=== PATIENT | female | born 1980 | race Caucasian/White ===

== ENCOUNTER 2017-03-15 18:31 | Emergency (ER) | payer OTHER ==
[2017-03-15 18:43] LABS: PH,URINE 5.5 (4.5-8); URINE APPEARANCE Cloudy; URINE BILIRUBIN Negative (NEGATIVE); URINE GLUCOSE (UA) Negative (NEGATIVE); URINE KETONE Negative (NEGATIVE); URINE NITRITE Negative (NEGATIVE); URINE UROBILINOGEN 0.2 (0.2-1.0)
[2017-03-15 18:44] LABS: URINE BLOOD 1+ (NEGATIVE); URINE COLOR YELLOW; URINE LEUK ESTERASE 2+ (NEGATIVE); URINE PROTEIN 1+ (NEGATIVE)
[2017-03-15 18:45] VITALS: BP 148/104; PULSE 96; TEMP 99.3; BMI 34.0
[2017-03-15 18:58] LABS: URINE BACTERIA MODERATE /hpf (NEGATIVE); URINE WBC MANY (3-5)
--- NOTE | 2017-03-15 19:25 | PDOC ---
History of Present Illness - General History Source: Patient Exam Limitations: No Limitations - History of Present Illness Initial Comments: 03/15/17 20:34 The patient is a 36 year old female, with a significant past medical history of Wayne Rich(3 years ago), who presents to the emergency department complaining of burning with urination and flank pain for approximately 2 days. The patient reports she first began to experience suprapubic discomfort early yesterday morning. At the time, patient reports going to urinate and experiencing associated dysuria. Patient reports increased urinary frequency, but denies any hematuria or urgency. Patient reports her abdominal pain has been mildly alleviated after taking motrin, but her bilateral flank pain and dysuria persist. Patient reports taking OTC Azo, with minimal relief of dysuria. Patient denies any fever or chills. She reports some nausea, but denies any vomiting, diarrhea, or constipation. Patient denies any changes in diet or appetite. She denies any recent travel or sick contacts. Allergies: Azithromycin, Ceftriaxone, Mefenamic acid Past Surgical History: None reported Social History: Non smoker. No ETOH or recreational drug use. <Salima Zuniga - Last Filed: 03/15/17 20:39> <Marge Hugo - Last Filed: 03/16/17 00:55> - General Chief Complaint: Urinary Problem Stated Complaint: BURNING ON URINATION Time Seen by Provider: 03/15/17 19:18 Past History <Salima Zuniga - Last Filed: 03/15/17 20:39> - Past Medical History Other medical history: BLACK VANDA - Psycho/Social/Smoking Cessation Hx Anxiety: No Suicidal Ideation: No Smoking Status: No Smoking History: Never smoked Number of Cigarettes Smoked Daily: 0 <Marge Hugo - Last Filed: 03/16/17 00:55> - Past Medical History Allergies/Adverse Reactions: Allergies Allergy/AdvReac Type Severity Reaction Status Date / Time No Known Allergies Allergy Verified 07/19/11 17:38 Home Medications: Ambulatory Orders Vits W-Ca,Fe,FA(<1Mg) [] 1 each PO DAILY 01/06/12 Ciprofloxacin [Cipro -] 500 mg PO Q12H #14 tablet 03/15/17 Review of Systems - Review of Systems Able to Perform ROS?: Yes Comments:: 03/15/17 20:34 CONSTITUTIONAL: Absent: fever, no chills, no fatigue EYES: Absent: visual changes ENT: Absent: ear pain, no sore throat CARDIOVASCULAR: Absent: chest pain, no palpitations RESPIRATORY: Absent: cough, no SOB GI: Present: +abdominal pain, +nausea Absent: no vomiting, no constipation, no diarrhea GENITOURINARY: Present: +dysuria, +frequency, +bilateral flank pain Absent: no hematuria MUSCULOSKELETAL: Absent: no arthralgia, no myalgia SKIN: Absent: rash NEURO: Absent: headache <Zuniga,Giomilsy - Last Filed: 03/15/17 20:39> *Physical Exam - Vital Signs Last Vital Signs Temp Pulse Resp BP Pulse Ox 99.3 F 96 H 18 148/104 99 03/15/17 18:43 03/15/17 18:43 03/15/17 18:43 03/15/17 18:43 03/15/17 18:43 - Physical Exam Comments: 03/15/17 20:35 GENERAL: The patient is awake, alert, and fully oriented, in no acute distress. HEAD: Normal with no signs of trauma. EYES: Pupils equal, round and reactive to light, extraocular movements intact, sclera anicteric, conjunctiva clear with no pallor. ENT: Ears normal, nares patent, oropharynx clear without exudates. Moist mucous membranes. NECK: Normal range of motion, supple without lymphadenopathy, JVD, or masses. LUNGS: Breath sounds equal, clear to auscultation bilaterally. No wheeze/ crackles. HEART: Regular rate and rhythm, normal S1 and S2 without murmur or rub. ABDOMEN: Mild suprapubic tenderness. Soft/ nondistended. BS wnl. No guarding or rebound. No palpable masses. No hepatosplenomegaly. BACK: Mild bilateral CVA tenderness. EXTREMITIES: Normal range of motion, no edema. No clubbing or cyanosis. No cords, erythema, or tenderness. NEUROLOGICAL: Cranial nerves II through XII grossly intact. Normal speech, normal gait. PSYCH: Normal mood, normal affect. SKIN: Warm, Dry, normal turgor, no rashes or lesions noted. <Zuniga,Giomilsy - Last Filed: 03/15/17 20:39> - Vital Signs Last Vital Signs Temp Pulse Resp BP Pulse Ox 99.3 F 96 H 18 148/104 99 03/15/17 18:43 03/15/17 18:43 03/15/17 18:43 03/15/17 18:43 03/15/17 18:43 <Marge Hugo - Last Filed: 03/16/17 00:55> ED Treatment Course - ADDITIONAL ORDERS Additional order review: Laboratory Results 03/15/17 03/15/17 18:30 18:30 Urine Color Yellow Urine Appearance Cloudy Urine pH 5.5 Ur Specific [place] 1.025 Urine Protein 1+ H Urine Glucose (UA) Negative Urine Ketones Negative Urine Blood 1+ H Urine Nitrite Negative Urine Bilirubin Negative Urine Urobilinogen 0.2 Urine RBC 1-2 Urine WBC Many Ur Epithelial Cells Few Urine Bacteria Moderate Urine HCG, Qual Negative <Salima Zuniga - Last Filed: 03/15/17 20:39> - ADDITIONAL ORDERS Additional order review: Laboratory Results 03/15/17 03/15/17 18:30 18:30 Urine Color Yellow Urine Appearance Cloudy Urine pH 5.5 Ur Specific [place] 1.025 Urine Protein 1+ H Urine Glucose (UA) Negative Urine Ketones Negative Urine Blood 1+ H Urine Nitrite Negative Urine Bilirubin Negative Urine Urobilinogen 0.2 Urine RBC 1-2 Urine WBC Many Ur Epithelial Cells Few Urine Bacteria Moderate Urine HCG, Qual Negative <Marge Hugo - Last Filed: 03/16/17 00:55> Progress Note - Progress Note Progress Note: Documentation has been prepared under my direction and personally reviewed by me in its entirety. I attest that this documented accurately reflects all work, treatment, procedures and medical decision making performed by me. 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 Although most of her symptoms involve lower tract, she does have discomfort in bilateral flank areas. Of note, she has no fever or other constitutional symptoms. Exam as noted above. Urinalysis shows many WBCs and moderate bacteria without evidence of epithelial cells, consistent with UTI. Urine culture and sensitivity sent. Because of her mild bilateral CVA tenderness, patient will be given a 7 day course of ciprofloxacin 500 mg with first dose given here in the emergency room. The patient should drink plenty of water and return to the emergency room if she has fever/vomiting/worsening back pain. She should follow-up with her general doctor within the next several days <Marge Hugo - Last Filed: 03/16/17 00:55> *DC/Admit/Observation/Transfer - Attestations Scribe Attestion: 03/15/17 20:35 Documentation prepared by Salima Zuniga, acting as chief medical physicist for Marge Hugo MD. <Salima Zuniga - Last Filed: 03/15/17 20:39> <Marge Hugo - Last Filed: 03/16/17 00:55> Diagnosis at time of Disposition: UTI (urinary tract infection) Qualifiers: Urinary tract infection type: acute cystitis Hematuria presence: without hematuria Qualified Code(s): N30.00 - Acute cystitis without hematuria - Discharge Dispostion Disposition: HOME Condition at time of disposition: Stable - Prescriptions Prescriptions: Ciprofloxacin [Cipro -] 500 mg PO Q12H #14 tablet - Patient Instructions Printed Discharge Instructions: Urinary Tract Infection Additional Instructions: Cipro 500 mg twice a day for 1 week Drink plenty of water Return to ER if you have worsening pain/vomiting/fever Follow-up with general doctor within the next 5 days
[2017-03-15] MEDS ORDERED: CIPROFLOXACIN 500 MG TABLET (RESTRICTED TO ID) PO ONE (20:34)
[2017-03-15] MEDS ORDERED: CIPROFLOXACIN 250 MG TABLET (RESTRICTED TO ID) PO ONE (20:36)
== END 2017-03-15 20:58 | disposition home or self-care (01) ==
LOC: FER 18:31
DX: N30.00 Acute cystitis without hematuria (principal); L51.1 Stevens-Johnson syndrome
CPT/HCPCS: 81003; 81015; 84703; 87086; 87186; 99281-25